=== PATIENT | female | born 1970 ===

== ENCOUNTER 2018-12-04 05:45 | Day surgery (SDC) | payer OTHER ==
[~2018-12-04 05:45] MED LIST: PRISTIQ25 MG PO; TRANXENE T-TAB7.5 MG PO
[2018-12-04] MEDS ORDERED: tylenol #3 PO (15:03)
[2018-12-04] MEDS ORDERED: DOXYCYCLINE HY100 M3 PO (15:03)
== END 2018-12-04 18:50 | disposition home or self-care (01) ==
LOC: CIR.AMB 05:45
DX: N84.0 Polyp of corpus uteri (principal); D25.0 Submucous leiomyoma of uterus